=== PATIENT | female | born 1950 | race Caucasian/White ===

== ENCOUNTER 2017-03-09 05:58 | Emergency (ER) | payer MEDICARE ==
[~2017-03-09] VITALS: Ht 165.1 cm; Wt 86.7 kg
[2017-03-09 06:05] VITALS: BP 146/74; PULSE 94; RESP 20; TEMP 98.2; O2SAT 97
--- NOTE | 2017-03-09 06:51 | PD ---
HPI Chief Complaint: Cold / Flu Symptoms Time Seen by Provider: 06:42 Travel History International Travel<30 days: No Contact w/Intl Traveler<30days: No Traveled to known affect area: No History of Present Illness HPI The patient is a 67-year-old female who complains of a cough and sore throat for 2 days. The cough is persistent and keeps her awake at night. She denies any fever. She denies any shortness of breath. She denies Chest pain. The cough is minimally productive, she cannot tell me the color mucus. She has a history of arthritis and is on methotrexate. She also has hypertension and elevated cholesterol. She denies any diabetes. She does not smoke. [facility] Social History Tobacco Use: No Allergies-Medications (Allergen,Severity, Reaction): Coded Allergies: Sulfa (Sulfonamide Antibiotics) (Verified Allergy, Severe, Anaphylaxis, ) Reported Meds & Prescriptions Reported Meds & Active Scripts Active Guaifenesin DAC Liq (Extdcyymlsobmbk-Dvmeldv-Njlvbmswoal Liq) 30-10-100 Mg/5 Ml Soln 10 Ml PO Q4H PRN Reported Mupirocin (Mupirocin Calcium (Topical)) 2 % Cre Pantoprazole (Pantoprazole Sodium) 20 Mg Tab 20 Mg PO DAILY Piroxicam 20 Mg Cap 20 Mg PO DAILY Methotrexate 2.5 Mg Tab 2.5 Mg PO Q7D Folic Acid 0.8 Mg Tab 800 Mcg PO DAILY Losartan (Losartan Potassium) 50 Mg Tab 50 Mg PO BID Atorvastatin (Atorvastatin Calcium) 20 Mg Tab 20 Mg PO HS Amlodipine (Amlodipine Besylate) 5 Mg Tab 5 Mg PO DAILY Review of Systems Except as stated in HPI: all other systems reviewed are Neg Physical Exam Narrative GENERAL: The patient is alert, oriented 3 and slight apparent distress with her sore throat. SKIN: Focused skin assessment warm/dry. HEAD: Atraumatic. Normocephalic. EYES: Pupils equal and round. No scleral icterus. No injection or drainage. ENT: No nasal bleeding or discharge. Mucous membranes pink and moist. The throat shows mild erythema without exudate or abscess. NECK: Trachea midline. No JVD. No enlarged or tender nodes are present on the anterior cervical chain. CARDIOVASCULAR: Regular rate and rhythm. No murmur appreciated. RESPIRATORY: No accessory muscle use. Clear to auscultation. Breath sounds equal bilaterally. GASTROINTESTINAL: Abdomen soft, non-tender, nondistended. Hepatic and splenic margins not palpable. MUSCULOSKELETAL: No obvious deformities. No clubbing. No cyanosis. No edema. NEUROLOGICAL: Awake and alert. No obvious cranial nerve deficits. Motor grossly within normal limits. Normal speech. PSYCHIATRIC: Appropriate mood and affect; insight and judgment normal. Data Data Last Documented VS Vital Signs Date Time Temp Pulse Resp B/P (MAP) Pulse Ox O2 Delivery O2 Flow Rate FiO2 03/09/17 06:05 98.2 94 20 146/74 (98) 97 Orders Orders Influenzae A/B Antigen (03/09/17 06:46) Group A Rapid Strep Screen (03/09/17 06:46) Strep Culture (Group A) (03/09/17 06:45) Acetaminophen (Tylenol) (03/09/17 07:45) MDM Medical Decision Making Medical Screen Exam Complete: Yes Emergency Medical Condition: Yes Medical Record Reviewed: Yes Interpretation(s) The strep screen is negative and the influenza A/B is negative for flu a and flu B. Differential Diagnosis Nonspecific viral syndrome, influenza, strep pharyngitis Narrative Course The patient has a nonspecific viral syndrome. She has a fairly severe viral pharyngitis but she does not want narcotic pain medicines for it other than the cough syrup. She will need to increase her liquid intake and follow-up with a primary care physician as soon as possible. Diagnosis Primary Impression: Viral pharyngitis Additional Impression: Viral upper respiratory infection Additional Instructions: As we discussed, increase your liquid intake. If it is possible to follow-up with a primary care physician, do so as soon as possible. Scripts Rhworwgvxsivwgh-Ddzwwrz-Dtkirkkmeas Liq (Guaifenesin DAC Liq) 30-10-100 Mg/5 Ml Soln 10 ML PO Q4H Y for COUGH AND/OR COLD SYMPTOMS, #1 BOTTLE 0 Refills Prov: Riley Hay MD 03/09/17 Disposition: 01 DISCHARGE HOME Condition: Stable Riley Hay MD Mar 09, 2017 06:51
[2017-03-09] MEDS ORDERED: MUPI2CRE3 (06:57)
[2017-03-09] MEDS ORDERED: ATOR20TA15 PO (06:57)
[2017-03-09] MEDS ORDERED: AMLO5TAB2 PO (06:57)
[2017-03-09] MEDS ORDERED: FOLI800T PO (06:57)
[2017-03-09] MEDS ORDERED: METH2.5T PO (06:57)
[2017-03-09] MEDS ORDERED: LOSA50TA PO (06:57)
[2017-03-09] MEDS ORDERED: PANT20TA2 PO (06:57)
[2017-03-09] MEDS ORDERED: PIRO20CA PO (06:57)
[2017-03-09 07:00] VITALS: BP 135/72; PULSE 85; RESP 17; O2SAT 100
[2017-03-09] MEDS ORDERED: GUAISOL PO (07:03)
[2017-03-09] MEDS ORDERED: ACETAMINOPHEN 325 MG TAB PO ONE (07:45)
== END 2017-03-09 08:03 | disposition home or self-care (01) ==
LOC: PHED 05:58
DX: J02.8 Acute pharyngitis due to other specified organisms (principal); J06.9 Acute upper respiratory infection, unspecified; B97.89 Other viral agents as the cause of diseases classified elsewhere; M19.90 Unspecified osteoarthritis, unspecified site; E78.00 Pure hypercholesterolemia, unspecified; I10 Essential (primary) hypertension; Z88.2 Allergy status to sulfonamides
CPT/HCPCS: 87081; 87804; 87880; 99283